=== PATIENT | male | born 1995 | race Caucasian/White ===

== ENCOUNTER 2017-09-11 00:38 | Emergency (ER) | payer BC, MEDICAID ==
[2017-09-11] MEDS ORDERED: diphenhydrAMINE 25 MG Tab PO ONE (00:39)
[2017-09-11] MEDS ORDERED: predniSONE 20 MG Tab PO ONE (00:39)
[2017-09-11] MEDS ORDERED: diphenhydrAMINE 50 MG/ML SDV IVPUSH ONE (00:42)
[2017-09-11] MEDS ORDERED: methylPREDNISolone Sodium Succinate 125 MG/2 ML SDV IVPUSH ONE (00:42)
[2017-09-11] MEDS ORDERED: EPINEPHrine 1 MG/ML SDV SUBCUT ONE (00:42)
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
[2017-09-11] MEDS ORDERED: diphenhydrAMINE 25 MG Tab ONE (01:33)
[2017-09-11] MEDS ORDERED: predniSONE 20 MG Tab ONE (01:33)
== END 2017-09-11 01:42 | disposition home or self-care (01) ==
LOC: DL.ED 00:38
DX: L23.7 Allergic contact dermatitis due to plants, except food (principal); F17.210 Nicotine dependence, cigarettes, uncomplicated
CPT/HCPCS: 96372; 96374; 96375; 99284; A9270; J0171; J1200; J2930

== ENCOUNTER 2017-09-15 14:04 | Emergency (ER) | payer BC ==
[2017-09-15] MEDS ORDERED: Lidocaine 2% Viscous Solution 100 ML Bottle PO ONE (14:23)
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
[2017-09-15] MEDS ORDERED: Penicillin G Benzathine/Procaine 600-600 1.2 Millunits/2 ML Syringe IM ONE (14:30)
[2017-09-15] MEDS ORDERED: Lidocaine 2% Viscous Solution 15 ML Cup PO ONE (14:33)
== END 2017-09-15 15:04 | disposition home or self-care (01) ==
LOC: DL.ED 14:04
DX: J03.00 Acute streptococcal tonsillitis, unspecified (principal); F17.210 Nicotine dependence, cigarettes, uncomplicated
CPT/HCPCS: 87070; 87430; 96372; 99283; A9270; J0558

== ENCOUNTER 2020-03-14 05:24 | Emergency (ER) | payer BC ==
[2020-03-14] MEDS ORDERED: LORazepam 1 MG Tab PO ONE (05:46)
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
[2020-03-14 06:27] LABS: ANION GAP 18.9 mEq/L (7-13); CHLORIDE,CL 101 mmol/L (98-107); SODIUM,NA 140 mmol/L (136-145)
[2020-03-14] MEDS: LORazepam 1 MG Tab PO ONE ×2 (07:36→07:45)
== END 2020-03-14 07:47 ==
LOC: DL.ED 05:24
DX: F22 Delusional disorders (principal); F15.10 Other stimulant abuse, uncomplicated; F12.10 Cannabis abuse, uncomplicated; F17.210 Nicotine dependence, cigarettes, uncomplicated
CPT/HCPCS: 36415; 80053; 80305-QW; 80307; 85025; 99283; A9270-GY

== ENCOUNTER 2022-05-30 02:35 | Emergency (ER) | payer MEDICAID ==
[2022-05-30 03:49] LABS: ANION GAP 11.8 mEq/L (7-13); CHLORIDE,CL 103 mmol/L (98-107); SODIUM,NA 140 mmol/L (136-145)
[2022-05-30 03:57] LABS: AMPHETAMINES,URINE POSITIVE (NEGATIVE); BARBITURATES,URINE NEGATIVE (NEGATIVE); BENZODIAZEPINE,URINE NEGATIVE (NEGATIVE); MDMA (ECSTASY), URINE NEGATIVE (NEGATIVE); METHADONE,URINE NEGATIVE (NEGATIVE); METHAMPHETAMINES,URINE POSITIVE (NEGATIVE); OPIATES,URINE NEGATIVE (NEGATIVE); OXYCODONE,URINE NEGATIVE (NEGATIVE); PHENCYCLIDINE,URINE NEGATIVE (NEGATIVE); TCA,URINE NEGATIVE (NEGATIVE)
[2022-05-30 04:11] LABS: ESTIMATED GFR 94 mL/min (>=60)
[2022-05-30 04:16] LABS: ACETAMINOPHEN 0 ug/mL (10-30 (Therapeutic))
== END 2022-05-30 04:50 | disposition home or self-care (01) ==
LOC: DL.ED 02:35
DX: R45.851 Suicidal ideations (principal); F15.90 Other stimulant use, unspecified, uncomplicated; R07.89 Other chest pain; F41.9 Anxiety disorder, unspecified; F32.A Depression, unspecified; F17.210 Nicotine dependence, cigarettes, uncomplicated; Z20.822 Contact with and (suspected) exposure to COVID-19
CPT/HCPCS: 36415; 71045; 80053; 80143; 80179; 80305-QW; 80307; 81001; 83605; 83735; 84100; 84484; 85025; 85379; 86140; 93005; 99285; U0002